=== PATIENT | male | born 1980 | race Caucasian/White ===

== ENCOUNTER 2019-12-07 18:06 | Emergency (ER) | payer BC ==
[~2019-12-07] VITALS: Ht 180.3 cm; Wt 111.4 kg
[2019-12-07] MEDS ORDERED: TUMS REGULAR S500 MG PO (18:24)
[2019-12-07 18:45] LABS: EOS # 0.3 (0.04-0.40); EOS % 3.4 % (0.0-4.0); HEMATOCRIT 45.4 % (42.0-52.0); HEMOGLOBIN 15.5 g/dL (13.5-18.0); LYMPH# 3.8 (1.50-4.00); MEAN CELL VOLUME 89 fl (78-100); MEAN CORPUSCULAR HEMOGLOBIN 30 pg (27-31); MEAN CORPUSCULAR HGB CONC 34 g/dL (33-37); MEAN PLATELET VOLUME 8.9 fl (7.4-10.4); MONO # 0.8 (0.20-0.80); NEU # 5.1 (1.40-6.50); PLATELET COUNT 305 K/mm3 (130-400); RED BLOOD COUNT 5.11 M/mm3 (4.20-5.60); RED CELL DISTRIBUTION WIDTH 14.1 % (11.5-14.5); WHITE BLOOD COUNT 10.1 K/mm3 (4.8-10.8)
[2019-12-07 18:57] LABS: ALBUMIN 4.4 g/dL (3.5-5.0)
[2019-12-07 18:58] LABS: POTASSIUM 3.8 mmol/L (3.5-5.1)
[2019-12-07 18:59] LABS: CALCIUM 9.3 mg/dL (8.3-10.5)
[2019-12-07 19:00] LABS: TOTAL PROTEIN 7.7 g/dL (6.4-8.3)
[2019-12-07 19:02] LABS: TOTAL BILIRUBIN 0.3 mg/dL (0.2-1.2)
[2019-12-07 19:10] LABS: URINE APPEARANCE CLEAR; URINE BILIRUBIN NEGATIVE (NEGATIVE); URINE BLOOD TRACE (NEGATIVE); URINE COLOR YELLOW; URINE GLUCOSE NEGATIVE (NEGATIVE); URINE KETONE NEGATIVE (NEGATIVE); URINE LEUKOCYTE ESTERASE NEGATIVE (NEGATIVE); URINE MUCUS PRESENT (NOT PRESENT); URINE NITRATE NEGATIVE (NEGATIVE); URINE PROTEIN(semi-quant) TRACE mg/dL (NEGATIVE); URINE UROBILINOGEN NORMAL (NORMAL)
[2019-12-07 21:20] VITALS: BP 141/98
== END 2019-12-07 21:20 | disposition home or self-care (01) ==
LOC: ED 18:06
PROVIDERS: Nurse Practitioner Family
DX: S39.011A Strain of muscle, fascia and tendon of abdomen, initial encounter (principal); N20.0 Calculus of kidney; N28.89 Other specified disorders of kidney and ureter; K21.9 Gastro-esophageal reflux disease without esophagitis; F17.210 Nicotine dependence, cigarettes, uncomplicated; X50.0XXA Overexertion from strenuous movement or load, initial encounter
CPT/HCPCS: Q9967

== ENCOUNTER → 2019-12-08 | Outpatient (CLI) | payer BC ==
[2019-12-07 21:20] VITALS: BP 141/98
[~2019-12-08] MED LIST: TUMS REGULAR S500 MG PO
== END ==
LOC: RAD 07:55
DX: N50.811 Right testicular pain (principal); I86.1 Scrotal varices; R10.11 Right upper quadrant pain

== ENCOUNTER → 2023-06-13 | Outpatient (CLI) | payer BC ==
[~2023-06-13] MED LIST changes: +CYCLOBENZAPRINE10 M1 PO; +GOOD NEIGHBOR200 M1 PO; +HYOSCYAMINE0.125 M8; +Iohexol 300 - 100 ML VIAL IV ONE; +ONDANSETRON HYDR4 MG PO; +TRAMADOL 50 MG TAB PO; +ZOFRAN ODT4 MG PO
== END ==
LOC: RAD 08:42
DX: N20.0 Calculus of kidney (principal); Z90.49 Acquired absence of other specified parts of digestive tract
CPT/HCPCS: Q9967

== ENCOUNTER → 2024-04-06 | Outpatient (CLI) | payer BC ==
[~2024-04-06] MED LIST changes: -Iohexol 300 - 100 ML VIAL IV ONE
== END ==
LOC: RAD 10:10
DX: S83.241A Other tear of medial meniscus, current injury, right knee, initial encounter (principal)

== ENCOUNTER → 2024-04-23 | Outpatient (CLI) | payer BC ==
[2024-04-23 11:23] LABS: URINE WBC 0 /hpf (0-3)
[2024-04-23 11:30] LABS: BASO # 0.03 K/mm3 (0.02-0.10); EOS # 0.33 K/mm3 (0.04-0.40); EOS % 2.4 % (0.0-4.0); HEMATOCRIT 46.2 % (42.0-52.0); HEMOGLOBIN 15.9 g/dL (13.5-18.0); LYMPH# 3.65 K/mm3 (1.50-4.00); MEAN CELL VOLUME 90 fl (78-100); MEAN CORPUSCULAR HEMOGLOBIN 31 pg (27-31); MEAN CORPUSCULAR HGB CONC 34 g/dL (33-37); MEAN PLATELET VOLUME 8.5 fl (7.4-10.4); MONO # 0.81 K/mm3 (0.20-0.80); NEU # 8.68 K/mm3 (1.40-6.50); PLATELET COUNT 296 K/mm3 (130-400); RED BLOOD COUNT 5.12 M/mm3 (4.20-5.60); RED CELL DISTRIBUTION WIDTH 13.1 % (11.5-14.5); WHITE BLOOD COUNT 13.6 K/mm3 (4.8-10.8)
[2024-04-23 11:37] LABS: ALBUMIN 4.6 g/dL (3.5-5.0)
[2024-04-23 11:38] LABS: CALCIUM 9.8 mg/dL (8.3-10.5)
[2024-04-23 11:40] LABS: TOTAL PROTEIN 7.5 g/dL (6.4-8.3)
[2024-04-23 11:41] LABS: TOTAL BILIRUBIN 0.6 mg/dL (0.2-1.2)
[2024-04-23 11:44] LABS: PH-URINE 7.5 (5.0 - 8.0); URINE APPEARANCE CLEAR (CLEAR); URINE BILIRUBIN NEGATIVE (NEGATIVE); URINE BLOOD NEGATIVE (NEGATIVE); URINE COLOR YELLOW (YELLOW); URINE GLUCOSE NEGATIVE (NEGATIVE); URINE KETONE NEGATIVE (NEGATIVE); URINE LEUKOCYTE ESTERASE NEGATIVE (NEGATIVE); URINE NITRATE NEGATIVE (NEGATIVE); URINE PROTEIN(semi-quant) NEGATIVE (NEGATIVE)
== END ==
LOC: LAB 10:51
PROVIDERS: Physician Assistant
DX: Z01.818 Encounter for other preprocedural examination (principal)